=== PATIENT | male | born 1945 | race Caucasian/White ===

== ENCOUNTER 2016-08-31 09:21 | Day surgery (SDC) | payer MEDICARE, BC ==
[~2016-08-31] VITALS: Ht 185.4 cm; Wt 69.4 kg
[~2016-08-31 09:21] MED LIST: ASPI325T6 PO; ASPIRIN E.C. 8181 MG PO; CELEBREX 200MG200 MG PO; CO Q-1010 M1 PO; COLACE 100100 MG/CAP PO; FISH OIL500 MG PO; FOLIC ACID0.4 MG PO; MULTI VITAMINS1 TAB PO; NIACIN 100100 MG/TAB PO; NORCO 325 MG-7.1 TAB PO; ROXICODONE 55 MG/TAB PO; TYLENOL 500MG500 MG PO; VITAMIN D1000 IU PO; VITAMINE200 PO
[2016-08-31] MEDS ORDERED: ASPIRIN 81M81 MG/TA2 PO (09:45)
[2016-08-31] MEDS ORDERED: OMEGA-3 1000 MG1 CAP PO (09:45)
[2016-08-31 09:59] VITALS: BP 138/81; PULSE 64; TEMP 98
[2016-08-31 11:17] VITALS: BP 127/82; PULSE 60; TEMP 97.7
[2016-08-31 11:30] VITALS: BP 138/87; PULSE 63
[2016-08-31 14:25] VITALS: BP 129/78; PULSE 60
== END 2016-08-31 11:55 | disposition home or self-care (01) ==
LOC: SDCO 09:21
DX: K22.2 Esophageal obstruction (principal); R13.12 Dysphagia, oropharyngeal phase; K21.9 Gastro-esophageal reflux disease without esophagitis
CPT/HCPCS: C1726; J2250; J3010; J7030

== ENCOUNTER 2019-06-25 06:37 | Day surgery (SDC) | payer MEDICARE, BC ==
[~2019-06-25] VITALS: Ht 185.4 cm; Wt 79.1 kg
[~2019-06-25 06:37] MED LIST changes: +ASPIRIN 81M81 MG/TA2 PO; +OMEGA-3 1000 MG1 CAP PO
[2019-06-25] MEDS ORDERED: MULTI VITAMINS1 TAB PO (06:59)
[2019-06-25] MEDS ORDERED: NATURAL FLAX1000 MG PO (06:59)
[2019-06-25] MEDS ORDERED: THE MEDICINE S200 M2 PO (06:59)
[2019-06-25] MEDS ORDERED: FOLIC ACID 40400 MCG PO (06:59)
[2019-06-25 07:00] VITALS: BP 120/69; PULSE 58; TEMP 97.5
[2019-06-25] MEDS ORDERED: VITAMIN D250 MCG PO (07:00)
[2019-06-25 10:20] VITALS: BP 131/67; PULSE 62; TEMP 97.1
--- NOTE | 2019-06-25 10:20 | NUR ---
Patient arrives to [facility] [place], accompanied by [employer] Sandi. Patient is sitting up in bed, sipping on water. He is alert and oriented. He states his pain is 2/10 when asked. He has 3 surgical incisions that are clean, dry, intact. His abdomen is soft, tender. Monitoring applied - VSS and WNL on room air. Offered and receives crackers and juice. , Monse, brought to the bedside. Call light in reach. Discharge criteria explained. Will continue to monitor.
[2019-06-25 10:35] VITALS: BP 132/68; PULSE 57
--- NOTE | 2019-06-25 10:35 | NUR ---
Patient is resting comfortably in room. Pain remains 2/10. Denies any intervention. Tolerating PO well.
[2019-06-25 10:50] VITALS: BP 143/69; PULSE 55
--- NOTE | 2019-06-25 10:50 | NUR ---
Patient resting comfortably in room. Denies nausea or need. VSS on room air.
[2019-06-25 11:05] VITALS: BP 132/68; PULSE 51
--- NOTE | 2019-06-25 11:05 | NUR ---
VSS. Denies pain, nausea, or need. Resting comfortably.
[2019-06-25 11:35] VITALS: BP 117/71; PULSE 50
--- NOTE | 2019-06-25 11:35 | NUR ---
Patient is resting comfortably in room. VSS and WNL on room air.
--- NOTE | 2019-06-25 11:52 | NUR ---
Patient escorted to restroom where he voids, returns to room.
--- NOTE | 2019-06-25 12:25 | NUR ---
Patient states "I'm ready to go home". He has met discharge criteria. His , Monse, is in agreement that they are ready to discharge. Discharge instructions discussed, denies any questions, and verbalizes understanding. PIV removed with catheter intact and hemostasis achieved. Escorted to exit via wheelchair. Discharged to home with ride in private vehicle at 1225.
== END 2019-06-25 12:25 | disposition home or self-care (01) ==
LOC: SDCO 06:37
DX: K40.90 Unilateral inguinal hernia, without obstruction or gangrene, not specified as recurrent (principal); Z79.82 Long term (current) use of aspirin; Z96.659 Presence of unspecified artificial knee joint; Z80.42 Family history of malignant neoplasm of prostate; Z80.1 Family history of malignant neoplasm of trachea, bronchus and lung; Z82.49 Family history of ischemic heart disease and other diseases of the circulatory system; Z85.828 Personal history of other malignant neoplasm of skin; Z96.642 Presence of left artificial hip joint; Z87.891 Personal history of nicotine dependence; G43.909 Migraine, unspecified, not intractable, without status migrainosus
CPT/HCPCS: C1781; J1100; J1885; J2250; J2405; J2704; J2795; J3010; J7120

== ENCOUNTER 2020-06-17 02:21 | Emergency (ER) | payer MEDICARE, BC ==
[~2020-06-17] VITALS: Ht 182.9 cm; Wt 81.8 kg
[~2020-06-17 02:21] MED LIST changes: +FOLIC ACID 40400 MCG PO; +NATURAL FLAX1000 MG PO; +THE MEDICINE S200 M2 PO; +VITAMIN D250 MCG PO
[2020-06-17 02:37] VITALS: TEMP 98.2
[2020-06-17 03:07] LABS: BASO # 0.1 (0.0-0.2); BASO % 0.6 % (0.0-2.0); EOS # 0.3 (0.0-0.7); EOS % 2.5 % (0-4.0); GRAN # 8.5 (1.4-6.5); GRAN % 70.8 % (42.2-75.2); HEMATOCRIT 45.6 % (42.0-52.0); HEMOGLOBIN 15.4 g/dl (13.5-18.0); LYMPH # 2.2 (1.2-3.4); LYMPH % 18.7 % (20.0-51.0); MEAN CELL VOLUME 88 fl (80.0-100.0); MEAN CORPUSCULAR HEMOGLOBIN 30 pg (27.0-31.0); MEAN CORPUSCULAR HGB CONC 34 g/dl (33.0-37.0); MEAN PLATELET VOLUME 9.1 fl (7.4-10.4); MONO # 0.8 (0.1-0.6); MONO % 6.9 % (1.7-9.3); PLATELET COUNT 246 K/mm3 (130-400); RED BLOOD COUNT 5.18 M/mm3 (4.20-5.60)
[2020-06-17 03:35] LABS: ALANINE AMINOTRANSFERASE 23 U/L (4-49); ALBUMIN 4.2 gm/dL (3.5-5.0); ALKALINE PHOSPHATASE 82 U/L (50-136); ANION GAP 10 mmol/L (7-16); AST,SGOT 41 U/L (15-37); BILIRUBIN,TOTAL 0.4 mg/dL (0.0-1.0); BLOOD UREA NITROGEN 30 mg/dL (9-20); CALCIUM 9.1 mg/dL (8.4-10.2); CARBON DIOXIDE 24 mmol/L (22-30); CHLORIDE 106 mmol/L (98-107); CREATININE, serum 1.05 (0.66-1.25); GLUCOSE 139 mg/dL (74-106); POTASSIUM 3.8 mmol/L (3.4-5.0); SODIUM 140 mmol/L (137-145); TOTAL PROTEIN 7.3 gm/dL (6.4-8.2)
[2020-06-17 04:02] LABS: LIPASE 50 U/L (23-300)
[2020-06-17 04:19] LABS: COLLECTION METHOD CLEAN CATCH
[2020-06-17 04:25] LABS: MUCOUS Present /lpf; PH 5 (5-8); SQUAMOUS EPITHELIAL None Seen /hpf; URINE APPEARANCE Clear; URINE BACTERIA Rare /hpf; URINE BILIRUBIN Negative (NEGATIVE); URINE BLOOD 2+ (NEGATIVE); URINE COLOR Yellow; URINE GLUCOSE Negative (NEGATIVE); URINE KETONE Negative (NEGATIVE); URINE LEUKOCYTE ESTERASE Negative (NEGATIVE); URINE NITRATE Negative (NEGATIVE); URINE PROTEIN(semi-quant) Negative (NEGATIVE); URINE UROBILINOGEN Negative (NEGATIVE)
[2020-06-17] MEDS ORDERED: FLOMAX 0.40.4 MG/CAP PO (04:59)
[2020-06-17] MEDS ORDERED: ZOFRAN 4MG T4 MG/TAB PO (04:59)
[2020-06-17] MEDS ORDERED: NORCO 325 MG-51 TAB PO (04:59)
[2020-06-17 05:20] VITALS: BP 144/77; PULSE 53
[2020-06-17 05:39] LABS: TROPONIN-I < 0.012 ng/mL (0.000-0.035)
== END 2020-06-17 05:20 | disposition home or self-care (01) ==
LOC: COL.ER 02:21
PROVIDERS: Emergency Medicine
DX: R10.9 Unspecified abdominal pain (principal); Z79.82 Long term (current) use of aspirin; Z90.49 Acquired absence of other specified parts of digestive tract; Z87.891 Personal history of nicotine dependence
CPT/HCPCS: J1885; J2405; J7030; Q9967